=== PATIENT | female | born 1960 | race Caucasian/White ===

== ENCOUNTER 2018-01-18 08:14 | Outpatient (CLI) | payer OTHER | END 2018-01-18 08:15 | disposition home or self-care (01) | LOC: BICMAMMO 08:14 | PROVIDERS: ATTEND Family Medicine | DX: N64.4 Mastodynia (principal) | CPT/HCPCS: 77066; G0279 ==

== ENCOUNTER 2018-09-15 14:18 | Outpatient (CLI) | payer OTHER ==
--- NOTE | 2018-09-15 16:01 | MRI ---
LUMBAR SPINE MRI NONCONTRAST: 09/15/18 INDICATION: Lumbar radiculopathy. FINDINGS: There is prominent susceptibility of L5 and S1 level, which precludes reliable visualization. Promine nt region of decreased T1 and increased T2 signal involving the anterior inferior L1 and anterior sup erior L2 vertebral bodies likely relates to degenerative Modic type I marrow edema. Incidentally note d, left foraminal zone of T12-L1 indicates slight expansion and increased T2 signal, incompletely aguila luated. There is generalized marrow heterogeneity. The conus medullaris terminates at the superior L1 level. There is multilevel bilateral mild to moderate degenerative facet hypertrophy. L5-S1: Evaluation is precluded by the degree of susceptibility artifact. L4-5: There is mild central canal narrowing due to concentric disc bulge. There is minimal left fora nirav narrowing. No significant right foraminal narrowing. L3-4: No high grade central canal or foraminal stenosis. L2-3: No high grade central canal or neural foraminal stenosis. L1-2: No high grade central canal or neural foraminal stenosis. Incidental note of parenchymal cyst formation of the right kidney. The extensive degree of persistent patient motion degrades image quality and limits evaluation. IMPRESSION: Multilevel degenerative change of the lumbar spine. There is susceptibility from hardware at L5-S1 wh ich precludes visualization of this region. Incompletely evaluated slightly expansile T2 hyperintensi ty of the left T12-L1 neural foramen. Followup dedicated localized postcontrast imaging as well as pr econtrast T1 fat sat imaging recommended to exclude possibility of a mass. POS: DANILO
== END 2018-09-15 14:19 | disposition home or self-care (01) ==
LOC: BICMRI 14:18
PROVIDERS: ATTEND Anesthesiology Pain Medicine
DX: M47.26 Other spondylosis with radiculopathy, lumbar region (principal)
CPT/HCPCS: 72148

== ENCOUNTER 2019-01-07 12:21 | Outpatient (CLI) | payer OTHER ==
[~2019-01-07 12:21] MED LIST: Gadobenate Dimeglumine 529 MG/1 ML (20ML VIAL) ONE
--- NOTE | 2019-01-07 15:36 | MRI ---
MRI LUMBAR SPINE WITH CONTRAST: HISTORY: Abnormal MRI with abnormal T2 hyperintense lesion in the left neural foramen, at T12-L1. COMPARISON: 09/15/2018 TECHNIQUE: Multiplanar T1 post contrast images were obtained of the lumbar spine without contrast. FINDINGS: This exam is limited secondary to patient motion. The abnormalities seen previously in the left neur al foramen, at T12-L1, show no significant enhancement. This demonstrates low T1 signal. 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 No suspicious mass is s een. There is susceptibility artifact in the lower lumbar spine. Please see prior MRI of the spine for fi ndings at the specific levels, which have not changed since that examination. IMPRESSION: The mass-like area in the left T12-L1 neural foramen represents an enlarged nerve root sleeve. POS: DANILO
== END 2019-01-07 12:22 | disposition home or self-care (01) ==
LOC: SCSMRI 12:21
PROVIDERS: ATTEND Anesthesiology Pain Medicine
DX: R93.7 Abnormal findings on diagnostic imaging of other parts of musculoskeletal system (principal); G54.9 Nerve root and plexus disorder, unspecified
CPT/HCPCS: 72149; 82565

== ENCOUNTER 2019-05-16 07:59 | Outpatient (CLI) | payer OTHER ==
--- NOTE | 2019-05-16 09:43 | MMO ---
Bilateral MAMMO Bilat Screen [facility]. CLINICAL HISTORY: Patient is 58 years old and is seen for screening. The patient has no family history of breast cancer. The patient has no personal history of cancer. VIEWS: The views performed were: bilateral craniocaudal with tomosynthesis; bilateral mediolateral oblique with tomosynthesis; bilateral exaggerated craniocaudal; and left mediolateral oblique. FILMS COMPARED: The present examination has been compared to prior imaging studies performed at [facility] on 04/15/2011, and at [facility] on 04/24/2015, 01/28/2017 and 01/18/2018. MAMMOGRAM FINDINGS: The breasts are heterogeneously dense, which could obscure a lesion on mammography. Benign calcifications are noted bilaterally. There are no suspicious masses, suspicious calcifications, or new areas of architectural distortion. IMPRESSION: THERE IS NO MAMMOGRAPHIC EVIDENCE OF MALIGNANCY. A ROUTINE FOLLOW-UP MAMMOGRAM IN 1 YEAR IS RECOMMENDED. THE RESULTS OF THIS EXAM WERE SENT TO THE PATIENT. ACR BI-RADS Category 2 - Benign finding MAMMOGRAPHY NOTE: 1. A negative mammogram report should not delay a biopsy if a dominant of clinically suspicious mass is present. 2. Approximately 10% to 15% of breast cancers are not detected by mammography. 3. Adenosis and dense breasts may obscure an underlying neoplasm. Reported by: Roosevelt PERDOMO Electonically Signed: [id number]
== END 2019-05-16 08:00 | disposition home or self-care (01) ==
LOC: BICMAMMO 07:59
PROVIDERS: ATTEND Family Medicine
DX: Z12.31 Encounter for screening mammogram for malignant neoplasm of breast (principal)
CPT/HCPCS: 77063; 77067

== ENCOUNTER 2020-02-02 02:54 | Emergency (ER) | payer SELFPAY ==
[2020-02-02 03:18] LABS: #Basophils 0.1 thou/uL (0.0-0.2); #Eosinphils 0.3 thou/uL (0.0-0.7); #Lymphocytes 2.6 thou/uL (1.20-3.40); #Monocytes 1.4 thou/uL (0.11-0.59); #Neutrophils 7.3 thou/uL (1.40-6.50); %Basophils 0.7 % (0.0-1.0); %Eosinophils 2.5 % (0.0-10.0); %Lymphocytes 22.4 % (21.0-51.0); %Monocytes 11.9 % (0.0-10.0); %Neutrophils 62.5 % (42.0-75.0); Mean Corpuscular HGB CONC 33.3 g/dL (32.0-36.0); Mean Corpuscular Hemoglobin 30.3 pg (27.0-31.0); Mean Corpuscular Volume 90.9 fL (78.0-98.0); Mean Platelet Volume 7.5 fL (7.4-10.4); Platelet Count 235 thou/uL (130-400); Red Blood Cell (RBC) Count 4.29 mill/uL (4.20-5.40); White Blood Cell (WBC) Count 11.7 thou/uL (4.8-10.8)
[2020-02-02 03:39] LABS: ALT (SGPT) 12 U/L (8-55); AST (SGOT) 25 U/L (5-34); Albumin 3.7 g/dL (3.5-5.0); Alcohol Less than 10 mg/dL (Less than 10); Alkaline Phosphatase 90 U/L (40-110); Anion Gap 10 mmol/L (10-20); BUN (Urea Nitrogen) 13 mg/dL (9.8-20.1); Bilirubin, Total 0.3 mg/dL (0.2-1.2); Calc. Creatinine Clearance 0 mL/min (70-130); Calcium 9.6 mg/dL (7.8-10.44); Carbon Dioxide 25 mmol/L (22-29); Chloride 111 mmol/L (98-107); Estimated GFR-MDRD 73; Globulin 3.3 g/dL (2.4-3.5); Glucose 138 mg/dL (70-105); Lipase 29 U/L (8-78); Potassium 4.1 mmol/L (3.5-5.1); Sodium 142 mmol/L (136-145)
[2020-02-02] MEDS ORDERED: Morphine 4 MG/ML VIAL ONE ×2 (03:44→05:18)
[2020-02-02 05:30] LABS: Amphetamine Not Detected (NotDetected); Barbiturates Screen Not Detected (NotDetected); Benzodiazepine Screen Not Detected (NotDetected); Cocaine Metabolite Screen Not Detected (NotDetected); Medtox Control Line Valid? VALID (VALID); Medtox Reader # READER 4; Methadone Not Detected (NotDetected); Methamphetamine Not Detected (NotDetected); Opiate Screen Detected (NotDetected); Oxycodone Screen Not Detected (NotDetected); Phencyclidine (PCP) Not Detected (NotDetected); THC/Cannabinoid Screen Not Detected (NotDetected); Tricyclic Screen Not Detected (NotDetected)
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
[2020-02-02] MEDS ORDERED: Iopamidol 370 76% 100 ML VIAL ONE (14:08)
== END 2020-02-02 05:36 | disposition short-term general hospital (02) ==
LOC: ERS 02:54
DX: S12.120A Other displaced dens fracture, initial encounter for closed fracture (principal); R18.8 Other ascites; E78.5 Hyperlipidemia, unspecified; F17.210 Nicotine dependence, cigarettes, uncomplicated; Z79.899 Other long term (current) drug therapy; V49.9XXA Car occupant (driver) (passenger) injured in unspecified traffic accident, initial encounter; W22.10XA Striking against or struck by unspecified automobile airbag, initial encounter; Y92.411 Interstate highway as the place of occurrence of the external cause
CPT/HCPCS: 51701; 70450; 71260; 72125; 74177; 80053; 80306; 80307; 83690; 85025; 96374; 96376; G0390; J2270; Q9967

== ENCOUNTER 2020-07-26 13:06 | Outpatient (CLI) | payer BC ==
--- NOTE | 2020-07-26 14:49 | MMO ---
Bilateral MAMMO Bilat Screen [facility]. CLINICAL HISTORY: Patient is 60 years old and is seen for screening. The patient has no family history of breast cancer. The patient has no personal history of cancer. VIEWS: The views performed were: bilateral craniocaudal with tomosynthesis; bilateral mediolateral oblique with tomosynthesis; and bilateral exaggerated craniocaudal. FILMS COMPARED: The present examination has been compared to prior imaging studies performed at [facility] on 04/24/2015, 01/28/2017, 01/18/2018 and 05/16/2019. This study has been interpreted with the assistance of computer-aided detection. MAMMOGRAM FINDINGS: The breasts are heterogeneously dense, which could obscure a lesion on mammography. Finding 1: There are stable benign appearing calcifications seen in both breasts. Finding 2: There are stable benign appearing densities seen in both breasts. There are no suspicious masses, suspicious calcifications, or new areas of architectural distortion. IMPRESSION: THERE IS NO MAMMOGRAPHIC EVIDENCE OF MALIGNANCY. A ROUTINE FOLLOW-UP MAMMOGRAM IN 1 YEAR IS RECOMMENDED. THE RESULTS OF THIS EXAM WERE SENT TO THE PATIENT. ACR BI-RADS Category 2 - Benign finding MAMMOGRAPHY NOTE: 1. A negative mammogram report should not delay a biopsy if a dominant of clinically suspicious mass is present. 2. Approximately 10% to 15% of breast cancers are not detected by mammography. 3. Adenosis and dense breasts may obscure an underlying neoplasm. Reported by: KAREN FRANCE MD Electonically Signed: [id number]
== END 2020-07-26 13:07 | disposition home or self-care (01) ==
LOC: BICMAMMO 13:06
PROVIDERS: ATTEND Family Medicine
DX: Z12.31 Encounter for screening mammogram for malignant neoplasm of breast (principal)
CPT/HCPCS: 77063; 77067

== ENCOUNTER 2021-09-02 13:38 | Outpatient (CLI) | payer BC | END 2021-09-02 13:39 | disposition home or self-care (01) | LOC: BICMAMMO 13:38 | PROVIDERS: ATTEND Family Medicine | DX: Z12.31 Encounter for screening mammogram for malignant neoplasm of breast (principal) | CPT/HCPCS: 77063; 77067 ==

== ENCOUNTER 2025-07-04 12:51 | Emergency (ER) | payer MEDICARE ==
[2025-07-04 14:51] LABS: #Basophils 0.07 10x3/uL (0.0-0.2); #Eosinophils 0.03 10x3/uL (0.0-0.7); #Monocytes 1.13 10x3/uL (0.11-0.59); #Neutrophils 9.85 10x3/uL (1.40-6.50); %Basophils 0.5 % (0.0-1.0); %Eosinophils 0.2 % (0.0-10.0); %Lymphocytes 14.3 % (21.0-51.0); %Monocytes 8.7 % (0.0-10.0); %Neutrophils 75.6 % (42.0-75.0); Hematocrit 37.4 % (36.0-47.0); Hemoglobin 12.4 g/dL (12.0-16.0); Mean Corpuscular Hemoglobin 30.2 pg (27.0-31.0); Mean Corpuscular Volume 91.0 fL (78.0-98.0); Platelet Count 395 10x3/uL (130-400); Red Blood Cell (RBC) Count 4.11 mill/uL (4.20-5.40); White Blood Cell (WBC) Count 13.04 10x3/uL (4.8-10.8)
[2025-07-04] MEDS ORDERED: Acetaminophen 500 MG TAB ONE (15:00)
[2025-07-04] MEDS ORDERED: diphenhydrAMINE 50 MG/ML VIAL ONE (15:01)
[2025-07-04] MEDS ORDERED: Metoclopramide HCl 10 MG (2 mL) VIAL ONE (15:01)
[2025-07-04 15:09] LABS: ALT (SGPT) Less than 7 U/L (Less than 34); AST (SGOT) 19 U/L (11-34); Albumin 3.4 g/dL (3.1-4.5); Alkaline Phosphatase 74 U/L (40-110); Anion Gap 19 mmol/L (10-20); BUN (Urea Nitrogen) 8 mg/dL (9.8-20.1); Bilirubin, Total 0.3 mg/dL (0.3-1.2); Calc. Creatinine Clearance 0 mL/min (70-130); Calcium 10.1 mg/dL (7.8-10.44); Carbon Dioxide 20 mmol/L (23-31); Chloride 102 mmol/L (98-107); Globulin 4.2 g/dL (2.4-3.5); Glucose 83 mg/dL (80-115); Potassium 4.0 mmol/L (3.5-5.1); Sodium 137 mmol/L (136-145)
== END 2025-07-04 16:34 | disposition home or self-care (01) ==
LOC: ERS 12:51
DX: J01.10 Acute frontal sinusitis, unspecified (principal); J01.00 Acute maxillary sinusitis, unspecified; D72.829 Elevated white blood cell count, unspecified
CPT/HCPCS: 70450; 71046; 72050; 80053; 85025; J1200; J2765; J2919; J3010; 96374; 96375